=== PATIENT | female | born 1965 | race Caucasian/White ===

== ENCOUNTER 2023-09-30 09:04 | Outpatient (CLI) | payer BC, SELFPAY ==
--- NOTE | ~2023-09-30 | XR_ITS ---
Left Hand Technique: PA, oblique, and lateral views were obtained. Clinical History: Osteoarthritis Findings: No acute fracture or dislocation is seen. Osseous alignment is anatomic. There is mild to m oderate degenerative change of the first CMC joint. Soft tissues are unremarkable. Impression: Mild to moderate degenerative change to first CMC joint. Reviewed, dictated and finalized at location M. Impression: Mild to moderate degenerative change to first CMC joint.
== END 2023-09-30 09:05 | disposition home or self-care (01) ==
LOC: ANHIMG 09:06
PROVIDERS: PCP Internal Medicine; Visit Provider Plastic Surgery
DX: M18.12 Unilateral primary osteoarthritis of first carpometacarpal joint, left hand (principal)
CPT/HCPCS: 73130